=== PATIENT | male | born 1955 | race Caucasian/White ===

== ENCOUNTER 2023-08-31 12:17 | Day surgery (SDC) | payer MEDICARE, OTHER ==
[~2023-08-31] VITALS: Ht 185.4 cm; Wt 123.4 kg
[~2023-08-31 12:17] MED LIST: LR 1,000 ML IV SCH; Ondansetron 4 MG/2 ML VIAL IV PRN
[2023-08-31] MEDS ORDERED: CRESTOR20 MG PO (12:42)
[2023-08-31] MEDS ORDERED: PRINIVIL40 MG PO (12:42)
[2023-08-31] MEDS ORDERED: VIAGRA100 M1 (12:43)
[2023-08-31 13:01] VITALS: BP 165/99; PULSE 75; TEMP 98.1
[2023-08-31] MEDS ORDERED: Lidocaine PF 2% (20 MG/ML) 5 ML VIAL ONE (14:04)
[2023-08-31 14:45] VITALS: BP 131/78; PULSE 77; TEMP 97.2
[2023-08-31 15:00] VITALS: BP 148/90; PULSE 74
--- NOTE | 2023-08-31 15:20 | NUR ---
1445-PT TO [facility] 4 PER CART FROM PROCEDURE ROOM. REPORT RECEIVED. VS OBTAINED. CALL LIGHT WITHIN REACH. DENIES ANY NEEDS. 1450-PT TOLERATING SODA AND MUFFIN. 1452-DR ZAVALA IN ROOM DISCUSSING FINDINGS FROM PROCEDURE. 1500-IV DC'D AT THIS TIME. 1505-DISCHARGE EDUCATION COMPLETED WITH PT AND HIS . VERBALIZED UNDERSTANDING OF HOME AND FOLLOW UP CARE. ALL QUESTIONS ANSWERED. DISCHARGE PAPERWORK GIVEN TO PT. PT ABLE TO DRESS SELF WITHOUT ASSISTANCE. 1520-PT OFF UNIT PER WHEELCHAIR. PT DISCHARGED TO HOME WITH PER PERSONAL VEHICLE.
== END 2023-08-31 15:20 | disposition home or self-care (01) ==
LOC: SDCO 12:17
DX: Z12.11 Encounter for screening for malignant neoplasm of colon (principal); D12.2 Benign neoplasm of ascending colon; Z87.891 Personal history of nicotine dependence; Z80.0 Family history of malignant neoplasm of digestive organs
CPT/HCPCS: J2704; J7120

== ENCOUNTER 2024-03-08 05:18 | Day surgery (SDC) | payer MEDICARE, OTHER ==
[~2024-03-08] VITALS: Ht 185.4 cm; Wt 121.3 kg
[~2024-03-08 05:18] MED LIST changes: +CRESTOR20 MG PO; +PRINIVIL40 MG PO; +VIAGRA100 M1
[2024-03-08 05:32] VITALS: BP 92/66; PULSE 90; TEMP 97.6
--- NOTE | 2024-03-08 05:53 | NUR ---
The patient ambulated back to [place] [facility] independently using a steady gait and appeared to tolerate the activity well. Vital signs obtained. Consent signed. 20G IV started in right hand with one stick, LR infusing without difficulty. Assessment completed. Home medications reconcilled. Warm blanket provided. , Mary, at bedside. The patient denies any further needs at this time.
[2024-03-08] MEDS ORDERED: Lidocaine PF 2% (20 MG/ML) 5 ML VIAL ONE (07:00)
[2024-03-08 07:32] VITALS: BP 83/64; PULSE 92
[2024-03-08 07:47] VITALS: BP 90/74; PULSE 82
--- NOTE | 2024-03-08 08:10 | NUR ---
0732- PT BACK TO [facility] 1 FROM [place]. HELPED TO RECLINER BY THIS RN. MONITORS IN PLACE AND VS OBTAINED. NO COMPLAINTS OF PAIN OR NAUSEA. GIVEN FOOD AND DRINK. 0747- TOLERATING FOOD AND DRINK WELL. NO PAIN OR NAUSEA. PHYSICIAN IN TO TALK WITH PT AND SPOUSE. 0754- IV REMOVED PER ORDERS. 0755- DISCHARGE TEACHING DONE WITH PT. NO QUESTIONS AT THIS TIME. 0800- PT DISCHARGED FROM HOSPITAL VIA WHEELCHAIR TO PRIVATE VEHICLE DRIVEN BY SPOUSE.
== END 2024-03-08 08:00 | disposition home or self-care (01) ==
LOC: SDCO 05:18
DX: Z12.11 Encounter for screening for malignant neoplasm of colon (principal); Z86.010 Personal history of colon polyps; T18.4XXA Foreign body in colon, initial encounter
CPT/HCPCS: J2704; J7120